=== PATIENT | female | born 1975 ===

== ENCOUNTER 2019-04-29 07:45 | Inpatient (IN) | payer OTHER ==
[~2019-04-29] VITALS: Ht 154.9 cm; Wt 50.8 kg
== END 2019-05-08 10:33 | DRG 337 ==
LOC: OB/GYN 05-05 07:00 → O/R 05-05 07:45 → OB/GYN 05-05 19:25
PROVIDERS: Colon & Rectal Surgery; ADMIT Obstetrics & Gynecology
PROC: 0DNW0ZZ Release Peritoneum, Open Approach (ICD-10-PCS; principal; 2019-05-05 07:00)
PROC: 0T8C0ZZ Division of Bladder Neck, Open Approach (ICD-10-PCS; 2019-05-05 07:00)
DX: K66.0 Peritoneal adhesions (postprocedural) (postinfection) (principal)